=== PATIENT | male | born 1995 | race African-American/Black ===

== ENCOUNTER 2017-06-21 05:22 | Emergency (ER) | payer SELFPAY ==
[~2017-06-21] VITALS: Ht 193 cm; Wt 79.8 kg
[2017-06-21] MEDS ORDERED: IV NORMAL SALINE 1000ML BAG 1,000 ML IV SCH (05:30)
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
[2017-06-21 05:45] LABS: BASO # 0.1 x10^3/uL (0.0-0.2); BASO % 1 % (0-3); EOS % 3 % (0-3); HEMATOCRIT 47.7 % (39.0-53.0); HEMOGLOBIN 15.7 g/dL (13.0-17.5); LYMPH # 3.1 x10^3/uL (1.0-4.8); LYMPH % 31 % (24-48); MEAN CORPUSCULAR HEMOGLOBIN 28 pg (25-35); MEAN CORPUSCULAR HGB CONC 33 g/dL (31-37); MEAN CORPUSCULAR VOLUME 86 fL (79-100); MONO % 10 % (0-9); NEUT % 56 % (31-73); PLATELET COUNT 219 x10^3/uL (140-400); RED BLOOD COUNT 5.56 x10^6/uL (4.30-5.70); RED CELL DISTRIBUTION WIDTH 14.8 % (11.5-14.5); WHITE BLOOD COUNT 10.2 x10^3/uL (4.0-11.0)
[2017-06-21] MEDS ORDERED: ONDANSETRON PF 4 MG/2 ML VIAL. IV ONE (05:45)
[2017-06-21 05:56] LABS: BARBITURATES NEG (NEG); BENZODIAZEPINES NEG (NEG); CANNABINOIDS POS (NEG); COCAINE NEG (NEG); METHADONE NEG (NEG); OPIATES NEG (NEG); PHENCYCLIDINE NEG (NEG)
[2017-06-21 05:58] LABS: BILIRUBIN,URINE NEGATIVE (NEG); GLUCOSE,URINE NEGATIVE (NEG); NITRITE,URINE NEGATIVE (NEG); PROTEIN,URINE NEGATIVE (NEG-TRACE)
[2017-06-21 06:00] LABS: ALBUMIN 4.2 g/dL (3.4-5.0); CALCIUM 8.9 mg/dL (8.5-10.1); CREATININE 1.4 mg/dL (0.7-1.3); DIRECT BILIRUBIN 0.2 mg/dL (0.0-0.2); ETHANOL < 10 mg/dL (0-10); GFR 77.4; TOTAL BILIRUBIN 1.2 mg/dL (0.2-1.0); TOTAL PROTEIN 7.8 g/dL (6.4-8.2)
[2017-06-21 06:02] LABS: POTASSIUM 2.9 mmol/L (3.5-5.1)
[2017-06-21 06:16] LABS: BACTERIA,URINE 0 /HPF (0-FEW); SQUAMOUS EPITHELIAL CELL,UR FEW /LPF; WBC,URINE OCC /HPF (0-4)
--- NOTE | 2017-06-21 06:23 | EKG ---
[facility] [address] [place] [address] Test Date: 2017-06-21 Test Time: 05:42:26 Pat Name: WILMER SLATER Department: Room: Gender: M Supervisor Prepress: : 1995 Requested By: Roger MORLEY Order Number: [id number] Reading MD: Marcos Mcfarland Measurements Intervals [place] Rate: 68 P: 48 VA: 194 QRS: 64 QRSD: 102 T: 43 QT: 430 QTc: 462 Interpretive Statements SINUS RHYTHM NO SPECIFIC ECG ABNORMALITIES RI6.01 No previous ECG available for comparison Electronically Signed On 06-21-2017 17:42:00 CDT by Marcos Mcfarland
[2017-06-21 06:48] VITALS: BP 137/73
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
== END 2017-06-21 06:52 | disposition short-term general hospital (02) ==
LOC: ER 05:22
DX: S06.5X0A Traumatic subdural hemorrhage without loss of consciousness, initial encounter (principal); S06.6X0A Traumatic subarachnoid hemorrhage without loss of consciousness, initial encounter; F12.10 Cannabis abuse, uncomplicated; V87.8XXA Person injured in other specified noncollision transport accidents involving motor vehicle (traffic), initial encounter; Y93.39 Activity, other involving climbing, rappelling and jumping off; Y99.8 Other external cause status; Y92.89 Other specified places as the place of occurrence of the external cause
CPT/HCPCS: 36415; 70450; 71010; 72125; 72128; 72131; 80048; 80076; 80307; 80329; 81001; 85027; 93005; 96361; 96374; 99291; G0480; J2060; J2405; J7030; G0479

== ENCOUNTER 2018-07-19 20:21 | Emergency (ER) | payer SELFPAY ==
[~2018-07-19] VITALS: Ht 193 cm; Wt 84.4 kg
[2018-07-19 20:26] VITALS: BP 146/86
[2018-07-19 20:43] LABS: BILIRUBIN,URINE NEGATIVE (NEG); CLARITY,URINE CLEAR; COLOR,URINE YELLOW; NITRITE,URINE NEGATIVE (NEG); PROTEIN,URINE NEGATIVE (NEG-TRACE); UROBILINOGEN,URINE 0.2 mg/dL (0.2 mg/dL)
[2018-07-19] MEDS ORDERED: cefTRIAXone IM 250 MG VIAL IM ONE (20:45)
[2018-07-19] MEDS ORDERED: metroNIDAZOLE 500 MG TABLET PO ONE (20:45)
[2018-07-19] MEDS ORDERED: ONDANSETRON ODT 4 MG TAB.RAPDIS. PO ONE (20:45)
[2018-07-19] MEDS ORDERED: AZITHROMYCIN 250 MG TABLET. PO ONE (20:45)
[2018-07-19 21:08] LABS: BACTERIA,URINE FEW /HPF (0-FEW); SQUAMOUS EPITHELIAL CELL,UR FEW /LPF; WBC,URINE >40 /HPF (0-4)
--- NOTE | 2018-07-19 21:38 | PHYS DOC ---
Past Medical History Past Medical History: No Pertinent History Past Surgical History: No Surgical History Alcohol Use: Rarely Drug Use: Marijuana Adult General Chief Complaint Chief Complaint: PAIN ON URINATION HPI HPI Patient is a 22 year old male who presents with pain with urination. The patient states that he has been practicing unsafe sex. He thinks that he has been exposed to a sexually transmitted disease. He is requesting prophylactic treatment in the emergency department. He denies fever, abdominal pain or back pain. Review of Systems Review of Systems Constitutional: Denies fever or chills [] Eyes: Denies change in visual acuity, redness, or eye pain [] HENT: Denies nasal congestion or sore throat [] Respiratory: Denies cough or shortness of breath [] Cardiovascular: No additional information not addressed in HPI [] GI: Denies abdominal pain, nausea, vomiting, bloody stools or diarrhea [] : The history of present illness Musculoskeletal: Denies back pain or joint pain [] Integument: Denies rash or skin lesions [] Neurologic: Denies headache, focal weakness or sensory changes [] Endocrine: Denies polyuria or polydipsia [] All other systems were reviewed and found to be within normal limits, except as documented in this note. Current Medications Current Medications Current Medications Medications (Trade) Dose Ordered Sig/Emily Start Time Stop Time Status Last Admin Dose Admin Azithromycin (Zithromax) 1,000 mg 1X ONCE 07/19/18 20:45 07/19/18 20:47 DC 07/19/18 21:52 1,000 MG Ceftriaxone Sodium (Rocephin Im) 250 mg 1X ONCE 07/19/18 20:45 07/19/18 20:47 DC 07/19/18 21:28 250 MG Metronidazole (Flagyl) 2,000 mg 1X ONCE 07/19/18 20:45 07/19/18 20:47 DC 07/19/18 21:52 2,000 MG Ondansetron HCl (Zofran Odt) 4 mg 1X ONCE 07/19/18 20:45 07/19/18 20:47 DC 07/19/18 21:27 4 MG Allergies Allergies Allergies Coded Allergies Type Severity Reaction Last Updated Verified No Known Drug Allergies 05/09/16 No Physical Exam Physical Exam Constitutional: Well developed, well nourished, no acute distress, non-toxic appearance. [] Neck: Normal range of motion, no tenderness, supple, no stridor. [] Cardiovascular:Heart rate regular rhythm, no murmur [] Lungs & Thorax: Bilateral breath sounds clear to auscultation [] Abdomen: Bowel sounds normal, soft, no tenderness, no masses, no pulsatile masses. [] Skin: Warm, dry, no erythema, no rash. [] Back: No tenderness, no CVA tenderness. [] Extremities: No tenderness, no cyanosis, no clubbing, ROM intact, no edema. [] Neurologic: Alert and oriented X 3, normal motor function, normal sensory function, no focal deficits noted. [] Psychologic: Affect normal, judgement normal, mood normal. [] Current Patient Data Vital Signs Vital Signs Date Time Temp Pulse Resp B/P (MAP) Pulse Ox O2 Delivery O2 Flow Rate FiO2 07/19/18 20:26 97.9 73 18 146/86 (106) 98 Room Air 97.9 Lab Values Laboratory Tests Test 07/19/18 20:26 Urine Collection Type Unknown Urine Color Yellow Urine Clarity Clear Urine pH 6.0 Urine Specific [place] >=1.030 Urine Protein Negative mg/dL (NEG-TRACE) Urine Glucose (UA) Negative mg/dL (NEG) Urine Ketones (Stick) Negative mg/dL (NEG) Urine Blood Negative (NEG) Urine Nitrite Negative (NEG) Urine Bilirubin Negative (NEG) Urine Urobilinogen Dipstick 0.2 mg/dL (0.2 mg/dL) Urine Leukocyte Esterase Moderate (NEG) Urine RBC 1-2 /HPF (0-2) Urine WBC >40 /HPF (0-4) Urine Squamous Epithelial Cells Few /LPF Urine Bacteria Few /HPF (0-FEW) Urine Mucus Marked /LPF Urine Chlamydia DNA (PCR) Positive (Negative) A Neisseria gonorrhoeae DNA (PCR) Negative (Negative) Microbiology 07/19/18 Urine Culture - Final, Complete 07/19/18 Urine Culture Result 1 (LOIS) - Final, Complete EKG EKG [] Radiology/Procedures Radiology/Procedures [] Course & Med Decision Making Course & Med Decision Making Pertinent Labs and Imaging studies reviewed. (See chart for details) The patient is receiving Zithromax, Rocephin and Flagyl in the emergency department. He has been counseled to not drink alcohol or participate in sexual activity for 2 weeks. He understands that we will only call with positive test results. He is in agreement with this plan. Attending physician attestation: I was working at the time of this patient's ER visit and was available for consultation, but did not personally interview, examine, or directly take part in the patient's care. DO Marcia Crockett Disclaimer Dragon Disclaimer This electronic medical record was generated, in whole or in part, using a voice recognition dictation system. Departure Departure Impression: Primary Impression: Exposure to STD Disposition: HOME, SELF-CARE Condition: STABLE Referrals: NO PCP (PCP) Patient Instructions: Sexually Transmitted Disease Additional Instructions: You were treated in the emergency department. We will only call her cultures returned as positive. As we discussed please abstain from sexual activity for 2 weeks to allow time for the antibiotics to work. If you do have positive results please contact your sexual partners to know that they have been exposed to need to be tested. If worsening please return to the emergency department. JAYLA CESAR APRN Jul 19, 2018 21:38 SHARON MARTIN DO Jul 23, 2018 06:15
== END 2018-07-19 22:05 | disposition home or self-care (01) ==
LOC: ER 20:21
DX: R30.9 Painful micturition, unspecified (principal); Z11.3 Encounter for screening for infections with a predominantly sexual mode of transmission; F12.10 Cannabis abuse, uncomplicated
CPT/HCPCS: 81001; 87086; 87491; 87591; 96372; 99284; J0696; Q0144; Q0162

== ENCOUNTER 2018-10-12 16:38 | Emergency (ER) | payer SELFPAY ==
[~2018-10-12] VITALS: Ht 193 cm; Wt 81.6 kg
[2018-10-12 16:52] VITALS: BP 146/90
[2018-10-12] MEDS ORDERED: HYDROcodone/APAP 5/325MG 1 TAB TABLET PO ONE (17:00)
[2018-10-12] MEDS ORDERED: LIDOCAINE/EPI/TETRACAINE TOPICAL GEL 3 ML. TP ONE (17:45)
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
[2018-10-12] MEDS ORDERED: CEPH-264 PO (19:06)
[2018-10-12] MEDS ORDERED: HYDR-3164 PO (19:06)
== END 2018-10-12 19:36 | disposition home or self-care (01) ==
LOC: ER 16:38
DX: S71.102A Unspecified open wound, left thigh, initial encounter (principal); Z88.0 Allergy status to penicillin; W22.8XXA Striking against or struck by other objects, initial encounter; Y93.89 Activity, other specified; Y92.89 Other specified places as the place of occurrence of the external cause; Y99.8 Other external cause status
CPT/HCPCS: 73552; 99283

== ENCOUNTER 2020-05-10 16:27 | Emergency (ER) | payer SELFPAY ==
[~2020-05-10] VITALS: Ht 190.5 cm; Wt 87.0 kg
[~2020-05-10 16:27] MED LIST: CEPH-264 PO; HYDR-3164 PO
[2020-05-10 16:48] VITALS: BP 139/79
--- NOTE | 2020-05-10 18:08 | PHYS DOC ---
Past Medical History Past Medical History: Other Additional Past Medical Histor: TBI 2017 Past Surgical History: No Surgical History Smoking Status: Current Every Day Smoker Alcohol Use: Heavy Drug Use: None General Adult EDM: Chief Complaint: HAND PROBLEM HPI: HPI: Patient is a 24 year old MALE who presents with states on April 27 he had someone for his arrest and he was arrested by police. He states that when they went to cuff him they were off and bent his right hand backward and ever since then he has not felt the same. He states it hurts. When he is asked about the quality of pain he states it is hard to describe it just hurts. He tells the nurse that the "police are racist and he wants to elly them". Rates his pain 8 out of 10. Review of Systems: Review of Systems: Musculoskeletal: Denies back pain or joint pain. Right hand pain [] Heart Score: Risk Factors: Risk Factors: DM, Current or recent (<one month) smoker, HTN, HLP, family history of CAD, obesity. Risk Scores: Score 0 - 3: 2.5% MACE over next 6 weeks - Discharge Home Score 4 - 6: 20.3% MACE over next 6 weeks - Admit for Clinical Observation Score 7 - 10: 72.7% MACE over next 6 weeks - Early Invasive Strategies Allergies: Allergies: Allergies Coded Allergies Type Severity Reaction Last Updated Verified Penicillins Allergy Unknown 05/10/20 Yes Physical Exam: PE: Constitutional: Well developed, well nourished, no acute distress, non-toxic appearance. [] HENT: Normocephalic, atraumatic, bilateral external ears normal, oropharynx moist, no oral exudates, nose normal. [] Eyes: PERRLA, EOMI, conjunctiva normal, no discharge. [] Neck: Normal range of motion, no tenderness, supple, no stridor. [] Cardiovascular:Heart rate regular rhythm, no murmur [] Lungs & Thorax: Bilateral breath sounds clear to auscultation [] Abdomen: Bowel sounds normal, soft, no tenderness, no masses, no pulsatile masses. [] Skin: Warm, dry, no erythema, no rash. [] Back: No tenderness, no CVA tenderness. [] Extremities: No tenderness, no cyanosis, no clubbing, ROM intact, no edema. [] Neurologic: Alert and oriented X 3, normal motor function, normal sensory function, no focal deficits noted. [] Psychologic: Affect normal, judgement normal, mood normal. 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 PHYSICIAN: JUANCHO BAILEY APRN REASON: PAIN AFTER HAND CUFFED AND ARRESTED PROCEDURE: HAND RIGHT 3V EXAM: Right hand and wrist, 3 views. HISTORY: Trauma. COMPARISON: None. FINDINGS: 3 views of the right hand and wrist are obtained. There is no fracture, dislocation or subluxation. The alignment and joint spaces are unremarkable. There is no foreign body. IMPRESSION: No acute osseous finding. Electronically signed by: Carolann Caraballo MD (05/10/2020 6:19 PM) [facility] DICTATED and SIGNED BY: CAROLANN CARABALLO MD DATE: 05/10/201818 Course & Med Decision Making: Course & Med Decision Making Pertinent Labs and Imaging studies reviewed. 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 Patient is moving at the wrist with full range of motion. No tenderness to the hand with palpation. No deformity, no swelling, no abrasion, no lacerations. No bruising is seen. Cap refill is less than 3 seconds. Radial pulses strong and present. Skin pink warm and dry. Patient denies any loss of sensations. Denies any numbness or tingling. [] Dragon Disclaimer: Dragon Disclaimer: This electronic medical record was generated, in whole or in part, using a voice recognition dictation system. Departure Departure Impression: Primary Impression: Hand pain, right Disposition: 01 HOME, SELF-CARE Condition: STABLE Referrals: NO PCP (PCP) Patient Instructions: Hand Contusion, [id number] Additional Instructions: Follow-up with primary care provider if needed. Take ibuprofen for your pain. Use ice also to help with pain. Justicifation of Admission Dx: Justifications for Admission: Justification of Admission Dx: N/A JUANCHO BAILEY APRN May 10, 2020 18:08
--- NOTE | 2020-05-10 18:22 | RAD ---
EXAM: Right hand and wrist, 3 views. HISTORY: Trauma. COMPARISON: None. FINDINGS: 3 views of the right hand and wrist are obtained. There is no fracture, dislocation or subluxation. The alignment and joint spaces are unremarkable. There is no foreign body. IMPRESSION: No acute osseous finding. Electronically signed by: Carolann Caraballo MD (05/10/2020 6:19 PM) [facility]
--- NOTE | 2020-05-10 18:22 | RAD ---
EXAM: Right hand and wrist, 3 views. HISTORY: Trauma. COMPARISON: None. FINDINGS: 3 views of the right hand and wrist are obtained. There is no fracture, dislocation or subluxation. The alignment and joint spaces are unremarkable. There is no foreign body. IMPRESSION: No acute osseous finding. Electronically signed by: Carolann Caraballo MD (05/10/2020 6:19 PM) [facility]
== END 2020-05-10 18:30 | disposition home or self-care (01) ==
LOC: ER 16:27
DX: M79.641 Pain in right hand (principal); M25.531 Pain in right wrist; F17.200 Nicotine dependence, unspecified, uncomplicated; F10.10 Alcohol abuse, uncomplicated; Z87.820 Personal history of traumatic brain injury; Z88.0 Allergy status to penicillin
CPT/HCPCS: 73110; 73130; 99284

== ENCOUNTER 2021-01-12 22:35 | Emergency (ER) | payer SELFPAY ==
[~2021-01-12] VITALS: Ht 193 cm; Wt 90.0 kg
[2021-01-12 23:16] VITALS: BP 151/72
[2021-01-12] MEDS ORDERED: AZITHROMYCIN 250 MG TABLET. PO ONE (23:30)
[2021-01-12] MEDS ORDERED: cefTRIAXone IM 500 MG VIAL. IM ONE (23:30)
--- NOTE | 2021-01-12 23:43 | PHYS DOC ---
Past Medical History Past Medical History: Other Additional Past Medical Histor: TBI 2017 Past Surgical History: No Surgical History Smoking Status: Current Every Day Smoker Alcohol Use: Heavy Drug Use: None General Adult EDM: Chief Complaint: SEXUALLY TRANSMITTED DISEASE HPI: HPI: Patient is a 25 year old male who presents with concerns for possible STI. Patient has experienced sharp pain with urination started earlier today. He denies any cutaneous lesions on or around his genitalia. He denies fever or chills, nausea or vomiting, or any other systemic signs of infection. He notes he has a prior chlamydia/gonorrhea diagnosis 3 years ago that was treated. Review of Systems: Review of Systems: Constitutional: Denies fever or chills Eyes: Denies redness or eye pain HENT: Denies nasal congestion or sore throat Respiratory: Denies cough or shortness of breath Cardiovascular: Denies chest pain or palpitations GI: Denies abdominal pain, nausea, or vomiting : Admits dysuria denies hematuria Musculoskeletal: Denies back pain or joint pain Integument: Denies rash or skin lesions Neurologic: Denies headache, focal weakness or sensory changes Complete systems were reviewed and found to be within normal limits, except as documented in this note. Current Medications: Current Medications Medications (Trade) Dose Ordered Sig/Emily Start Time Stop Time Status Last Admin Dose Admin Azithromycin (Zithromax) 1,000 mg 1X ONCE 01/12/21 23:30 01/12/21 23:31 DC Ceftriaxone Sodium (Rocephin Im) 500 mg 1X ONCE 01/12/21 23:30 01/12/21 23:31 DC Allergies: Allergies: Allergies Coded Allergies Type Severity Reaction Last Updated Verified Penicillins Allergy Unknown 05/10/20 Yes Physical Exam: PE: Constitutional: Well developed, well nourished, no acute distress, non-toxic appearance HENT: Normocephalic, atraumatic Eyes: PERRL, EOMI, conjunctiva normal, no discharge Neck: Normal range of motion, no tenderness, supple Lungs & Thorax: No respiratory distress, equal chest rise and fall Abdomen: Soft, no tenderness Skin: Warm, dry, no erythema, no rash Back: No tenderness, no CVA tenderness Extremities: No tenderness, ROM intact, no edema Neurologic: Alert and oriented X 3, normal motor function, normal sensory function, no focal deficits noted Psychologic: Affect normal, judgment normal Current Patient Data: Vital Signs: Vital Signs Date Time Temp Pulse Resp B/P (MAP) Pulse Ox O2 Delivery O2 Flow Rate FiO2 01/12/21 23:16 97.7 78 16 151/72 (98) 100 Room Air 97.7 EKG: EKG: [] Radiology/Procedures: Radiology/Procedures: [] Course & Med Decision Making: Course & Med Decision Making Pertinent Labs and Imaging studies reviewed. (See chart for details) Patient presents with dysuria concerning for possible STI. A urine sample was obtained, and the patient given appropriate antibiotics. Patient stable for discharge with outpatient follow-up with PCP. Discussed findings and plan with patient, who acknowledges understanding and agreement. [employer] Disclaimer: [facility] Disclaimer: This electronic medical record was generated, in whole or in part, using a voice recognition dictation system. Departure Departure Impression: Primary Impression: Concern about sexually transmitted disease in male without diagnosis Disposition: 01 DC HOME SELF CARE/HOMELESS Condition: STABLE Referrals: NO PCP (PCP) Patient Instructions: Dysuria, Sexually Transmitted Disease, [id number] Additional Instructions: Use over the counter Tylenol and/or Ibuprofen for pain or discomfort. Scripts Phenazopyridine Hcl (PYRIDIUM) 200 Mg Tablet 1 TAB PO TID for urinary discomfort for 2 Days, #6 TAB 0 Refills Prov: ASCENCION GARCIA DO 01/13/21 Cephalexin (CEPHALEXIN) 500 Mg Capsule 1 CAP PO TID, #21 CAP Prov: ASCENCION GARCIA DO 01/13/21 ASCENCION GARCIA DO Jan 12, 2021 23:43
[2021-01-13 00:01] LABS: BILIRUBIN,URINE NEGATIVE (NEG); CLARITY,URINE CLOUDY; COLOR,URINE YELLOW; NITRITE,URINE NEGATIVE (NEG); PH,URINE 7.5 (<5.0-8.0); PROTEIN,URINE NEGATIVE (NEG-TRACE)
[2021-01-13 00:17] LABS: WBC,URINE 20-40 /HPF (0-4)
[2021-01-13 00:18] LABS: AMORPHOUS SEDIMENT,UR PRESENT /HPF; BACTERIA,URINE 0 /HPF (0-FEW)
[2021-01-13] MEDS ORDERED: CEPH500C PO (00:39)
[2021-01-13] MEDS ORDERED: PHEN-318 PO (00:39)
[2021-01-13] MEDS ORDERED: PHENAZOPYRIDINE 200 MG TABLET. PO ONE (00:45)
== END 2021-01-13 01:07 | disposition home or self-care (01) ==
LOC: ER 22:35
DX: R30.9 Painful micturition, unspecified (principal); F17.200 Nicotine dependence, unspecified, uncomplicated; F10.10 Alcohol abuse, uncomplicated; Z20.2 Contact with and (suspected) exposure to infections with a predominantly sexual mode of transmission; Z88.0 Allergy status to penicillin
CPT/HCPCS: 81001; 87086; 87491; 87591; 96372; 99283; J0696